=== PATIENT | female | born 1995 | race Caucasian/White ===

== ENCOUNTER 2019-01-29 19:39 | Emergency (ER) | payer OTHER ==
[2019-01-29 19:46] VITALS: BP 104/68; PULSE 87; RESP 18; TEMP 98.1
[2019-01-29] MEDS ORDERED: ACETAMINOPHEN TAB 500 MG TAB PO STA (19:57)
--- NOTE | 2019-01-29 20:03 | ED ---
Fall HPI - General Source: patient Mode of arrival: wheelchair <Shabana Urbano - Last Filed: 01/29/19 20:48> <Elsa Laws - Last Filed: 02/01/19 00:03> - General Chief Complaint: Fall Stated Complaint: Fell downstairs/37 wks Time Seen by Provider: 01/29/19 19:46 - History of Present Illness Initial Comments: 23-year-old female patient presents to the emergency department today for evaluation of right ankle injury. Patient states that an hour ago she was coming down the stairs when she fell down the last 2 steps. Patient states that she did fall down. States she felt a snapping in the right ankle has been having pain since. States she was able to handle it but was quite difficult due to the pain. Patient is 37 weeks . , currently seeing Dr. Nicolas for care. She is unsure she struck her abdomen on the ground. States she is having some cramping across her abdomen. Denies any vaginal bleeding or discharge. Denies any back pain. She denies hitting her head or losing consciousness. Patient denies any headache, neck pain, chest pain, shortness of breath, dizziness, weakness, nausea, vomiting, or difficulties with bowel movements or urination. (Shabana Urbano) - Related Data Home Medications Medication Instructions Recorded Confirmed No Known Home Medications 01/18/17 01/29/19 Allergies Allergy/AdvReac Type Severity Reaction Status Date / Time No Known Allergies Allergy Verified 01/29/19 21:45 Review of Systems ROS Other: All systems not noted in ROS Statement are negative. <Shabana Urbano - Last Filed: 01/29/19 20:48> ROS Other: All systems not noted in ROS Statement are negative. <Elsa Laws - Last Filed: 02/01/19 00:03> ROS Statement: Those systems with pertinent positive or pertinent negative responses have been documented in the HPI. Past Medical History Past Medical History: Asthma History of Any Multi-Drug Resistant Organisms: None Reported Past Surgical History: No Surgical Hx Reported Past Psychological History: Anxiety, Bipolar, Depression Smoking Status: Former smoker Past Alcohol Use History: Occasional Past Drug Use History: None Reported <Shabana Urbano - Last Filed: 01/29/19 20:48> General Exam Limitations: no limitations General appearance: alert, in no apparent distress, other (Physical well- developed, well-nourished adult female patient in no acute distress. Vital signs upon presentation are temperature 98.1F, pulse 87, respirations 18, blood pressure 104/68, pulse ox 97% on room air. ) Neck exam: Present: normal inspection, full ROM, other (Nontender, no step-off, no deformity to firm midline palpation of the posterior cervical spine. Full range of motion without pain or limitation.). Absent: tenderness, meningismus, lymphadenopathy Respiratory exam: Present: normal lung sounds bilaterally. Absent: respiratory distress, wheezes, rales, rhonchi, stridor Cardiovascular Exam: Present: regular rate, normal rhythm, normal heart sounds. Absent: systolic murmur, diastolic murmur, rubs, gallop, clicks GI/Abdominal exam: Present: soft, normal bowel sounds, other (Gravid abdomen). Absent: distended, tenderness, guarding, rebound, rigid Extremities exam: Present: full ROM, tenderness (Right lateral malleolus tenderness), normal capillary refill, other (Swelling surrounding the right late ral malleolus. Skin is otherwise pink, warm, dry. Cap refills less than 3 seconds. Pedal and posttibial pulses are 2+ and equal bilaterally.). Absent: normal inspection, pedal edema, joint swelling, calf tenderness Neurological exam: Present: alert, oriented X3, CN II-XII intact Psychiatric exam: Present: normal affect, normal mood Skin exam: Present: warm, dry, intact, normal color. Absent: rash <Shabana Urbano - Last Filed: 01/29/19 20:48> Course Vital Signs 01/29/19 19:41 Temperature 98.1 F Pulse Rate 87 Respiratory 18 Rate Blood Pressure 104/68 O2 Sat by Pulse 97 Oximetry Medical Decision Making - Radiology Data Radiology results: report reviewed, image reviewed <Shabana Urbano - Last Filed: 01/29/19 20:48> <Elsa Laws - Last Filed: 02/01/19 00:03> - Medical Decision Making 23-year-old female patient presented to the emergency department today for evaluation of right ankle pain after experiencing a fall. Patient is 37 weeks and does report abdominal cramping. Physical examination revealed the right lateral malleolus swelling. Neurovascular status intact. Abdomen was gravid and nontender. Dr. Laws my attending was in and performed bedside ultrasound which showed normal movement and heart activity. X-ray of the right ankle was negative for any fracture. Patient symptoms are consistent with ankle sprain. We did place an air splint and discussed rest, ice, elevation. She is instructed follow-up with her primary care physician have repeat x-rays performed in 7-10 days if pain symptoms persist. She will be discharged and sent to the labor and delivery unit for monitoring. Return parameters were discussed in detail. She verbalizes understanding and agrees with this plan. (Shabana Urbano) I was available for consultation in the emergency department. The history and physical exam were done by the midlevel provider. I was consulted for this patients care. I reviewed the case with the midlevel provider and based on their presentation of the patient, I agree with the assessment, medical decision making and plan of care as documented. I evaluated the patient myself and performed the bedside ultrasound. Chart was dictated using [employer] dictation software. Attempts were made to correct any dictation errors however some typographical errors may persist. (Elsa Laws) - Radiology Data Three-view x-ray of the right ankle are obtained. Report was reviewed in its entirety. Impression by Dr. Gutierrez shows soft tissue swelling. No fracture seen. (Shabana Urbano) Disposition Is patient prescribed a controlled substance at d/c from ED?: No Time of Disposition: 20:36 <Shabana Urbano - Last Filed: 01/29/19 20:48> <Elsa Laws - Last Filed: 02/01/19 00:03> Clinical Impression: Right ankle sprain, Abdominal pain during intrauterine Disposition: HOME SELF-CARE Condition: Good Instructions (If sedation given, give patient instructions): Ankle Sprain (ED), Abdominal Pain in (ED) Additional Instructions: Rest, ice, elevate the right ankle. Apply ice 20 minutes at a time at least 4 times daily. Take Tylenol for pain control. Follow-up through primary care physician in one to 2 days for recheck. Have repeat x-rays performed in 7-10 days if pain symptoms persist. Once discharged from the emergency department, proceed directly to the labor and delivery unit for monitoring. They are expecting you. Referrals: Ml Nicolas MD [REFERRING] - 1-2 days
--- NOTE | 2019-01-29 20:21 | XR ---
EXAMINATION TYPE: XR ankle complete RT DATE OF EXAM: 01/29/2019 COMPARISON: NONE HISTORY: Pain. Fall. TECHNIQUE: 3 views FINDINGS: There is soft tissue swelling over the lateral malleolus. I see no fracture nor dislocation . Joint spaces are normal. IMPRESSION: Soft tissue swelling. No fracture seen.
== END 2019-01-29 20:52 | disposition home or self-care (01) ==
LOC: EC 19:39
DX: O9A.213 Injury, poisoning and certain other consequences of external causes complicating pregnancy, third trimester (principal); S93.401A Sprain of unspecified ligament of right ankle, initial encounter; O26.893 Other specified pregnancy related conditions, third trimester; R10.9 Unspecified abdominal pain; Z3A.37 37 weeks gestation of pregnancy; Z87.891 Personal history of nicotine dependence; W10.9XXA Fall (on) (from) unspecified stairs and steps, initial encounter; Y93.01 Activity, walking, marching and hiking
CPT/HCPCS: 99283

== ENCOUNTER 2019-01-29 21:05 | Outpatient (CLI) | payer OTHER ==
[2019-01-29 21:54] VITALS: BP 118/72; PULSE 86; RESP 16; TEMP 97.3
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
== END 2019-01-29 21:37 | disposition home or self-care (01) ==
LOC: FBPOP 21:05
PROVIDERS: ATTEND Obstetrics & Gynecology
DX: O99.89 Other specified diseases and conditions complicating pregnancy, childbirth and the puerperium (principal); G89.11 Acute pain due to trauma; Z3A.36 36 weeks gestation of pregnancy
CPT/HCPCS: 59025; G0463; 99213

== ENCOUNTER 2019-04-29 17:00 | Emergency (ER) | payer OTHER ==
[2019-04-29 17:18] VITALS: BP 134/86; PULSE 85; TEMP 98.2
[2019-04-29] MEDS ORDERED: CEPHALEXIN 500MG STARTER PACK 4 CAP BTL PO STA (17:26)
[2019-04-29 17:50] VITALS: RESP 20
--- NOTE | 2019-04-29 18:22 | XR ---
EXAMINATION TYPE: XR chest 2V DATE OF EXAM: 04/29/2019 COMPARISON: 01/12/2016 HISTORY: Cough TECHNIQUE: FINDINGS: Heart and mediastinum are normal. Lungs are clear. Diaphragm is normal. Bony thorax appears normal. IMPRESSION: Normal chest. No change.
--- NOTE | 2019-04-29 18:27 | ED ---
URI HPI - General Chief Complaint: Upper Respiratory Infection Stated Complaint: Sore on leg Source: patient Mode of arrival: ambulatory Limitations: no limitations - History of Present Illness Initial Comments: 24yo female presenting for multiple complaints. Patient states she has cough, congestion, sore throat for past 2 days. Denies difficulty breathing, drooling, shortness of breath. She states she also noted a sore on the left inner thigh. Patient states that there is some redness, no drainage of the area she states that she initially thought it was an ingrown hair. Patient denies any chest pain, sob, difficulty breathing. Denies any other complaints. Denies fever, body aches. Patient appears well on arrival. 2 month post , breast feeding. - Related Data Previous Rx's Medication Instructions Recorded Cephalexin [Keflex] 500 mg PO Q6HR 7 Days #28 cap 04/29/19 Allergies Allergy/AdvReac Type Severity Reaction Status Date / Time No Known Allergies Allergy Verified 04/29/19 17:18 Review of Systems ROS Statement: Those systems with pertinent positive or pertinent negative responses have been documented in the HPI. ROS Other: All systems not noted in ROS Statement are negative. Past Medical History Past Medical History: Asthma History of Any Multi-Drug Resistant Organisms: None Reported Past Surgical History: No Surgical Hx Reported Past Psychological History: Anxiety, Bipolar, Depression Smoking Status: Never smoker Past Alcohol Use History: Occasional Past Drug Use History: Marijuana General Exam - General Exam Comments Initial Comments: General: The patient is awake and alert, in no distress, and does not appear acutely ill. Eye: +3 mm pupils are equal, round and reactive to light, extra-ocular movements are intact. No nystagmus. There is normal conjunctiva bilaterally. No signs of icterus. No photophobia Ears, nose, mouth and throat: There are moist mucous membranes and no oral lesions. Oropharynx was not erythematous there is no tonsillar enlargement exudates or lesions. Uvula midline. Tympanic membranes are not erythematous or is no effusions bulging or retraction. No tenderness to palpation of the mastoid. No anterior cervical lymphadenopathy. Rhinorrhea, clear and bilateral nares. No tripoding, no drooling. Neck: The neck is supple, there is no tenderness or JVD. No nuchal rigidity Cardiovascular: There is a regular rate and rhythm. No murmur, rub or gallop is appreciated. Respiratory: Lungs are clear to auscultation, respirations are non-labored, breath sounds are equal. No wheezes, stridor, rales, or rhonchi. No retractions or abdominal breathing. Gastrointestinal: Soft, non-distended, non-tender abdomen without masses or organomegaly noted. There is no rebound or guarding present. Bowel sounds are unremarkable. Musculoskeletal: Normal ROM, no tenderness. Strength 5/5. Sensation intact. Radial pulses equal bilaterally 2+. Neurological: A&O x 3. CN II-XII intact grossly, There are no obvious motor or sensory deficits. Coordination appears grossly intact. Speech appears normal, no muffling. Skin: Skin is warm and dry and no rashes. small 1cm raised red lesion with cm of faint erythema warm to touch surrounding it. no fluctuance. No extremity edema Psychiatric: Cooperative Limitations: no limitations Course Vital Signs 04/29/19 04/29/19 17:16 17:47 Temperature 98.2 F Pulse Rate 85 Respiratory 18 20 Rate Blood Pressure 134/86 O2 Sat by Pulse 99 Oximetry Medical Decision Making - Medical Decision Making 24yo female presenting cough, congestions. CXR clear .influ (-). Patient lungs clear, appears well nontoxic. most likely viral syndrome. Patient leg revealed a carbuncle with surrounding cellulitis no abscess. placed on antibiotics (keflex, safe in breast feeding). return parameters discussed patient was discharged appearing well after discussing case with Dr. Loco. - Lab Data Lab Results 04/29/19 Range/Units 17:46 Influenza Type A RNA Not Detected (Not Detectd) Influenza Type B (PCR) Not Detected (Not Detectd) Disposition Clinical Impression: URI (upper respiratory infection), Cellulitis of left thigh Disposition: HOME SELF-CARE Condition: Good Instructions (If sedation given, give patient instructions): Cellulitis (DC), Upper Respiratory Infection (ED) Additional Instructions: Please use medication as discussed. Please follow-up with family doctor in the next 2 days, watch redness as discussed. Please return to emergency room if the symptoms increase or worsen or for any other concerns. Prescriptions: Cephalexin [Keflex] 500 mg PO Q6HR 7 Days #28 cap Is patient prescribed a controlled substance at d/c from ED?: No Referrals: None,Stated [Primary Care Provider] - 1-2 days Time of Disposition: 18:26
== END 2019-04-29 18:39 | disposition home or self-care (01) ==
LOC: EC 17:00
DX: J06.9 Acute upper respiratory infection, unspecified (principal); L03.116 Cellulitis of left lower limb
CPT/HCPCS: 71046; 87502; 99283

== ENCOUNTER → 2021-08-22 | Outpatient (CLI) | payer OTHER ==
--- NOTE | 2021-08-22 13:14 | XR ---
Lumbosacral spine HISTORY: M 54.6, M 54.50 5 views of the lumbosacral spine Bone mineralization, vertebral body heights and alignment are maintained. Sclerosis in the posterior elements of the lower lumbosacral spine could be due to facet arthropathy. There is loss of disc at L 5-S1. No fracture or subluxation. There is no evident spondylolysis. IMPRESSION: There may be mild degenerative disc disease, facet arthropathy.
--- NOTE | 2021-08-22 13:45 | XR ---
Thoracic spine HISTORY: Pain 3 views of the thoracic spine There is a slight spinal curvature. Thoracic vertebral bodies show preserved height, alignment, and b one mineralization. There is mild multilevel spondylosis, some loss of disc height present at interve rtebral levels the midthoracic spine. No paraspinal mass. IMPRESSION: Mild degenerative disc changes are present.
== END | disposition home or self-care (01) ==
LOC: RADXRMAIN 11:40
PROVIDERS: ATTEND Family Medicine
DX: M47.814 Spondylosis without myelopathy or radiculopathy, thoracic region (principal)
CPT/HCPCS: 72070; 72110

== ENCOUNTER 2021-11-19 17:30 | Emergency (ER) | payer OTHER ==
[2021-11-19 18:03] VITALS: RESP 16
[2021-11-19] MEDS ORDERED: SODIUM CHLORIDE 0.9% 1,000 ML IV STA ×2 (19:14)
--- NOTE | 2021-11-19 19:22 | ED ---
General Adult HPI - General Chief complaint: Chest Pain Stated complaint: 8 wks preg/near syncope/chest pain/KATHRYN Time Seen by Provider: 11/19/21 19:05 Source: patient Mode of arrival: ambulatory Limitations: no limitations - History of Present Illness Initial comments: This 26-year-old female presents with a complaint of some pain in her chest. She states that it started yesterday. It is sharp at times. There is a degree of pleuritic chest pain as well. She complains of occasional shortness of breath with deep inspiration. She also states that she has had some pain in her mid back that seems radiate up into her left upper back. She denies any urinary symptoms. She complains of some lower abdominal cramping and is currently 8 weeks . She denies any complications with other than nausea and vomiting. She denies any history of blood clots to her legs or lungs. There is no leg pain or swelling. She has had a cough with some yellowish production. No other complaints or modifying factors. - Related Data Previous Rx's Medication Instructions Recorded Cephalexin [Keflex] 500 mg PO Q6HR 7 Days #28 cap 04/29/19 Amoxic-Pot Clav 875-125Mg 1 each PO Q12HR #20 tablet 11/19/21 [Augmentin Xr 875-125] Metoclopramide [Reglan] 10 mg PO Q6H PRN #20 tab 11/19/21 Allergies Allergy/AdvReac Type Severity Reaction Status Date / Time No Known Allergies Allergy Verified 11/19/21 18:03 Review of Systems ROS Statement: Those systems with pertinent positive or pertinent negative responses have been documented in the HPI. ROS Other: All systems not noted in ROS Statement are negative. Past Medical History Past Medical History: Asthma History of Any Multi-Drug Resistant Organisms: None Reported Past Surgical History: No Surgical Hx Reported Past Psychological History: Anxiety, Bipolar, Depression Smoking Status: Never smoker Past Alcohol Use History: Occasional Past Drug Use History: Marijuana General Exam - General Exam Comments Initial Comments: GENERAL: The patient is well nourished and well hydrated. VITAL SIGNS: Heart rate, blood pressure, respiratory rate reviewed as recorded in nurse's notes. EYES: Pupils are round and reactive. Extraocular movements are intact. No conjunctival / lid redness or swelling. ENT: No external evidence of injury, swelling, or ecchymosis. Airway is patent. Throat is clear. NECK: Nontender. No swelling or evidence of injury. No subcutaneous emphysema. Trachea is midline. No thyroid mass. HEART: Regular rate and rhythm. Good peripheral pulses. LUNGS/CHEST: Breath sounds clear and equal bilaterally. No rales, rhonchi, or wheezes. No ecchymosis, subcutaneous emphysema, or tenderness. ABDOMEN: Minimal tenderness bilateral flanks, minimal tenderness lower abdomen midline and bilaterally. No palpable masses or organomegaly. No peritoneal signs. No abdominal wall swelling or ecchymosis. EXTREMITIES: No extremity tenderness. Normal muscle tone and function. No thoracolumbar tenderness. NEUROLOGIC: Sensation is grossly intact. Cranial nerve exam reveals face is symmetrical, tongue is midline, speech is clear. SKIN: No abrasions or ecchymosis is noted. No induration or masses noted. PSYCHIATRIC: Alert and oriented. Appropriate behavior and judgment. Limitations: no limitations Course Vital Signs 11/19/21 11/19/21 18:00 19:34 Temperature 98.4 F 99.4 F Pulse Rate 87 76 Respiratory 16 16 Rate Blood Pressure 120/58 O2 Sat by Pulse 99 99 Oximetry Medical Decision Making - Medical Decision Making The patient was seen and examined. All diagnostics were reviewed. An IV is established and she is hydrated. Pelvic ultrasound does not show any acute abnormalities. There is heart tones with intrauterine . The urinalysis does not show any evidence of infection. The patient does have a negative cold. An influenza test. Laboratories unremarkable. The d-dimer is negative. It is not felt as though she is evidence of pulmonary embolism. She likely may have a bronchitis. She is bringing up some productive yellowish sputum. She does have a history of asthma. She has an inhaler at home that she can take. She is instructed to take her albuterol 2 puffs every 4 hours. She 'll be placed on antibiotics as well. She requests something for nausea related to her and will be prescribed Reglan. Close follow-up with her doctor recommended. Return parameters are discussed. She is instructed that she also may take Tylenol if needed for pain safely during . - Lab Data Result diagrams: 11/19/21 19:36 11/19/21 19:36 Lab Results 11/19/21 11/19/21 11/19/21 Range/Units 19:36 19:36 19:36 WBC 8.9 (3.8-10.6) k/uL RBC 4.49 (3.80-5.40) m/uL Hgb 13.5 (11.4-16.0) gm/dL Hct 39.8 (34.0-46.0) % MCV 88.8 (80.0-100.0) fL MCH 30.0 (25.0-35.0) pg MCHC 33.8 (31.0-37.0) g/dL RDW 13.0 (11.5-15.5) % Plt Count 272 (150-450) k/uL MPV 7.9 Neutrophils % 84 % Lymphocytes % 8 % Monocytes % 7 % Eosinophils % 0 % Basophils % 1 % Neutrophils # 7.4 (1.3-7.7) k/uL Lymphocytes # 0.7 L (1.0-4.8) k/uL Monocytes # 0.6 (0-1.0) k/uL Eosinophils # 0.0 (0-0.7) k/uL Basophils # 0.1 (0-0.2) k/uL PT 10.1 (9.0-12.0) sec INR 0.9 (<1.2) APTT 25.5 (22.0-30.0) sec D-Dimer 0.56 (<0.60) mg/L FEU Sodium 134 L (137-145) mmol/L Potassium 4.0 (3.5-5.1) mmol/L Chloride 99 (98-107) mmol/L Carbon Dioxide 27 (22-30) mmol/L Anion Gap 8 mmol/L BUN 9 (7-17) mg/dL Creatinine 0.53 (0.52-1.04) mg/dL Est GFR (CKD-EPI)AfAm >90 (>60 ml/min/1.73 sqM) Est GFR (CKD-EPI)NonAf >90 (>60 ml/min/1.73 sqM) Glucose 93 (74-99) mg/dL Calcium 9.9 (8.4-10.2) mg/dL Total Bilirubin 0.4 (0.2-1.3) mg/dL AST 21 (14-36) U/L ALT 17 (4-34) U/L Alkaline Phosphatase 52 (38-126) U/L Troponin I (0.000-0.034) ng/mL Total Protein 7.3 (6.3-8.2) g/dL Albumin 4.4 (3.5-5.0) g/dL HCG, Quant 903589.0 mIU/mL Urine Color Urine Appearance (Clear) Urine pH (5.0-8.0) Ur Specific Ward (1.001-1.035) Urine Protein (Negative) Urine Glucose (UA) (Negative) Urine Ketones (Negative) Urine Blood (Negative) Urine Nitrite (Negative) Urine Bilirubin (Negative) Urine Urobilinogen (<2.0) mg/dL Ur Leukocyte Esterase (Negative) Urine WBC (0-5) /hpf Ur Squamous Epith Cells (0-4) /hpf Urine Bacteria (None) /hpf Urine Mucus (None) /hpf Coronavirus (PCR) (Not Detectd) Influenza Type A RNA (Not Detectd) Influenza Type B (PCR) (Not Detectd) 11/19/21 11/19/21 11/19/21 Range/Units 19:36 19:56 19:56 WBC (3.8-10.6) k/uL RBC (3.80-5.40) m/uL Hgb (11.4-16.0) gm/dL Hct (34.0-46.0) % MCV (80.0-100.0) fL MCH (25.0-35.0) pg MCHC (31.0-37.0) g/dL RDW (11.5-15.5) % Plt Count (150-450) k/uL MPV Neutrophils % % Lymphocytes % % Monocytes % % Eosinophils % % Basophils % % Neutrophils # (1.3-7.7) k/uL Lymphocytes # (1.0-4.8) k/uL Monocytes # (0-1.0) k/uL Eosinophils # (0-0.7) k/uL Basophils # (0-0.2) k/uL PT (9.0-12.0) sec INR (<1.2) APTT (22.0-30.0) sec D-Dimer (<0.60) mg/L FEU Sodium (137-145) mmol/L Potassium (3.5-5.1) mmol/L Chloride (98-107) mmol/L Carbon Dioxide (22-30) mmol/L Anion Gap mmol/L BUN (7-17) mg/dL Creatinine (0.52-1.04) mg/dL Est GFR (CKD-EPI)AfAm (>60 ml/min/1.73 sqM) Est GFR (CKD-EPI)NonAf (>60 ml/min/1.73 sqM) Glucose (74-99) mg/dL Calcium (8.4-10.2) mg/dL Total Bilirubin (0.2-1.3) mg/dL AST (14-36) U/L ALT (4-34) U/L Alkaline Phosphatase (38-126) U/L Troponin I <0.012 (0.000-0.034) ng/mL Total Protein (6.3-8.2) g/dL Albumin (3.5-5.0) g/dL HCG, Quant mIU/mL Urine Color Urine Appearance (Clear) Urine pH (5.0-8.0) Ur Specific Ward (1.001-1.035) Urine Protein (Negative) Urine Glucose (UA) (Negative) Urine Ketones (Negative) Urine Blood (Negative) Urine Nitrite (Negative) Urine Bilirubin (Negative) Urine Urobilinogen (<2.0) mg/dL Ur Leukocyte Esterase (Negative) Urine WBC (0-5) /hpf Ur Squamous Epith Cells (0-4) /hpf Urine Bacteria (None) /hpf Urine Mucus (None) /hpf Coronavirus (PCR) Not Detected (Not Detectd) Influenza Type A RNA Not Detected (Not Detectd) Influenza Type B (PCR) Not Detected (Not Detectd) 11/19/21 Range/Units 20:37 WBC (3.8-10.6) k/uL RBC (3.80-5.40) m/uL Hgb (11.4-16.0) gm/dL Hct (34.0-46.0) % MCV (80.0-100.0) fL MCH (25.0-35.0) pg MCHC (31.0-37.0) g/dL RDW (11.5-15.5) % Plt Count (150-450) k/uL MPV Neutrophils % % Lymphocytes % % Monocytes % % Eosinophils % % Basophils % % Neutrophils # (1.3-7.7) k/uL Lymphocytes # (1.0-4.8) k/uL Monocytes # (0-1.0) k/uL Eosinophils # (0-0.7) k/uL Basophils # (0-0.2) k/uL PT (9.0-12.0) sec INR (<1.2) APTT (22.0-30.0) sec D-Dimer (<0.60) mg/L FEU Sodium (137-145) mmol/L Potassium (3.5-5.1) mmol/L Chloride (98-107) mmol/L Carbon Dioxide (22-30) mmol/L Anion Gap mmol/L BUN (7-17) mg/dL Creatinine (0.52-1.04) mg/dL Est GFR (CKD-EPI)AfAm (>60 ml/min/1.73 sqM) Est GFR (CKD-EPI)NonAf (>60 ml/min/1.73 sqM) Glucose (74-99) mg/dL Calcium (8.4-10.2) mg/dL Total Bilirubin (0.2-1.3) mg/dL AST (14-36) U/L ALT (4-34) U/L Alkaline Phosphatase (38-126) U/L Troponin I (0.000-0.034) ng/mL Total Protein (6.3-8.2) g/dL Albumin (3.5-5.0) g/dL HCG, Quant mIU/mL Urine Color Colorless Urine Appearance Clear (Clear) Urine pH 6.5 (5.0-8.0) Ur Specific Ward 1.006 (1.001-1.035) Urine Protein Negative (Negative) Urine Glucose (UA) Negative (Negative) Urine Ketones Negative (Negative) Urine Blood Negative (Negative) Urine Nitrite Negative (Negative) Urine Bilirubin Negative (Negative) Urine Urobilinogen <2.0 (<2.0) mg/dL Ur Leukocyte Esterase Trace H (Negative) Urine WBC <1 (0-5) /hpf Ur Squamous Epith Cells 5 H (0-4) /hpf Urine Bacteria Rare H (None) /hpf Urine Mucus Rare H (None) /hpf Coronavirus (PCR) (Not Detectd) Influenza Type A RNA (Not Detectd) Influenza Type B (PCR) (Not Detectd) Disposition Clinical Impression: Chest pain, Flank pain, Abdominal pain, , Cough, Bronchitis, Asthma, N ausea/vomiting in Disposition: HOME SELF-CARE Condition: Good Instructions (If sedation given, give patient instructions): Chest Pain (ED), Acute Bronchitis (ED), Abdominal Pain in (ED), Nausea and Vomiting in (ED) Prescriptions: Amoxic-Pot Clav 875-125Mg [Augmentin Xr 875-125] 1 each PO Q12HR #20 tablet Metoclopramide [Reglan] 10 mg PO Q6H PRN #20 tab PRN Reason: Nausea Is patient prescribed a controlled substance at d/c from ED?: No Referrals: Cassi Patino MD [Primary Care Provider] - 1-2 days Time of Disposition: 21:25
[2021-11-19 19:35] VITALS: TEMP 99.4
[2021-11-19 19:42] LABS: Basophils # (A) 0.1 k/uL (0-0.2); Basophils % (A) 1 %; Eosinophils % (A) 0 %; HCT 39.8 % (34.0-46.0); HGB 13.5 gm/dL (11.4-16.0); Lymphocytes # (A) 0.7 k/uL (1.0-4.8); Lymphocytes % (A) 8 %; MCHC 33.8 g/dL (31.0-37.0); MCV 88.8 fL (80.0-100.0); Mean Platelet Volume 7.9; Monocytes # (A) 0.6 k/uL (0-1.0); Monocytes % (A) 7 %; Neutrophils # (A) 7.4 k/uL (1.3-7.7); Neutrophils % (A) 84 %; Platelet Count 272 k/uL (150-450); RBC 4.49 m/uL (3.80-5.40); WBC 8.9 k/uL (3.8-10.6)
[2021-11-19 19:54] LABS: ALT 17 U/L (4-34); AST 21 U/L (14-36); African American GFR (CKD) >90 (>60 ml/min/1.73 sqM); Albumin 4.4 g/dL (3.5-5.0); Alkaline Phosphatase 52 U/L (38-126); Anion Gap 8 mmol/L; Blood Urea Nitrogen 9 mg/dL (7-17); Calcium 9.9 mg/dL (8.4-10.2); Carbon Dioxide 27 mmol/L (22-30); Chloride 99 mmol/L (98-107); Glucose 93 mg/dL (74-99); Non-African American GFR(CKD) >90 (>60 ml/min/1.73 sqM); Sodium 134 mmol/L (137-145); Total Bilirubin 0.4 mg/dL (0.2-1.3); Total Protein 7.3 g/dL (6.3-8.2)
[2021-11-19 19:58] LABS: INR 0.9 (<1.2); Partial Thromboplastin Time 25.5 sec (22.0-30.0); Prothrombin Time 10.1 sec (9.0-12.0)
--- NOTE | 2021-11-19 20:35 | US ---
EXAMINATION TYPE: Transabdominal DATE OF EXAM: 11/19/2021 8:18 PM COMPARISON: NONE CLINICAL HISTORY: pain. EXAM PERFORMED: Transabdominal (TA) EXAM MEASUREMENTS: GESTATIONAL AGE / DATING Physician Established: Not yet established Dates by LMP: (7 weeks/5 days) EDC: 07/03/2022 Dates by First Scan: No previous this is first scan Dates by Current Scan for: (7 weeks/5 days) EDC: 07/03/2022 MATERNAL ANATOMY Uterus: 10.5 x 4.9 x 7.1cm Right Ovary: 2.5 x 1.8 x 1.9cm Left Ovary: 3.6 x 2.0 x 3.2cm Post CDS / Adnexa: wnl Presence of free fluid: no Presence of corpus luteal cyst: left ovary: 2.1cm Presence of subchorionic bleed: no GESTATION / SURVEY CRL: 1.3cm (7 weeks/5 days) Yolk Sac (normal less than 6mm): 3.9mm Heart Rate: 158 bpm Rhythm: Normal IUP: Viable IUP Date of LMP: 09/26/2021 Beta HcG (if available): Not available at time of exam IMPRESSION: Single live intrauterine gestation ultrasound age of 7 weeks 5 days
[2021-11-19 21:01] LABS: Appearance,Urine Clear (Clear); Bacteria,Urine Rare /hpf; Bilirubin,Urine Negative (Negative); Blood,Urine Negative (Negative); Color,Urine Colorless; Glucose,Urine (UA) Negative (Negative); Ketones,Urine Negative (Negative); Leukocyte Esterase,Urine Trace (Negative); Mucus,Urine Rare /hpf; Nitrite,Urine Negative (Negative); PH, Urine 6.5 (5.0-8.0); Protein,Urine Negative (Negative); Specific Gravity,Urine 1.006 (1.001-1.035); Squamous Epithelial Cell,Urine 5 /hpf (0-4); Urobilinogen,Urine <2.0 mg/dL (<2.0); WBC,Urine <1 /hpf (0-5)
[2021-11-19 21:54] VITALS: BP 122/73; PULSE 78
== END 2021-11-19 21:54 | disposition home or self-care (01) ==
LOC: EC 17:30
DX: O26.891 Other specified pregnancy related conditions, first trimester (principal); O99.511 Diseases of the respiratory system complicating pregnancy, first trimester; J45.909 Unspecified asthma, uncomplicated; F41.9 Anxiety disorder, unspecified; F31.9 Bipolar disorder, unspecified; F12.90 Cannabis use, unspecified, uncomplicated; Z79.899 Other long term (current) drug therapy; Z20.822 Contact with and (suspected) exposure to COVID-19; Z3A.08 8 weeks gestation of pregnancy
CPT/HCPCS: 36415; 76801; 80053; 81001; 84484; 84702; 85025; 85379; 85610; 85730; 87502; 87635; 93005; 96360; 96361; 99285

== ENCOUNTER → 2021-12-01 | Outpatient (CLI) | payer OTHER ==
--- NOTE | 2021-12-01 12:41 | US ---
EXAMINATION TYPE: Transabdominal DATE OF EXAM: 12/01/2021 9:08 AM COMPARISON: 11/19/2021 CLINICAL HISTORY: Z34.90SUPERVISION OF NORMAL . Dates. EXAM PERFORMED: Transabdominal (TA) EXAM MEASUREMENTS: GESTATIONAL AGE / DATING Physician Established: Not yet established Dates by LMP: (9 weeks/3 days) EDC: 07/03/2022 Dates by First Scan: (9 weeks/3 days) EDC: 07/03/2022 Dates by Current Scan for: ( 9 weeks/1 days) EDC: 07/05/2022 MATERNAL ANATOMY Uterus: 9.5 x 8.5 x 6.7 cm Right Ovary: 3.6 x 2.0 x 1.9 cm Left Ovary: 3.0 x 2.0 x 1.7 cm Post CDS / Adnexa: no free fluid Presence of free fluid: no Presence of corpus luteal cyst: left= 1.3 x 1.9 x 1.3 cm Presence of subchorionic bleed: no GESTATION / SURVEY CRL: 2.5 cm (9 weeks/1 days) MSD: seen, not measured Yolk Sac (normal less than 6mm): 3.9 mm Heart Rate: 165 bpm Rhythm: Normal IUP: Demise Date of LMP: 09/26/2021, Beta HcG (if available): Not available at this time IMPRESSION: 1. Single intrauterine gestation estimated at 9 weeks 1 day gestation based on crown-rump length. Car diac activity measures 165 bpm.
== END | disposition home or self-care (01) ==
LOC: RADUSWWP 08:49
PROVIDERS: ATTEND Obstetrics & Gynecology
DX: Z34.91 Encounter for supervision of normal pregnancy, unspecified, first trimester (principal); Z3A.09 9 weeks gestation of pregnancy
CPT/HCPCS: 76801

== ENCOUNTER → 2022-02-27 | Outpatient (CLI) | payer OTHER ==
--- NOTE | 2022-02-27 09:42 | US ---
EXAMINATION TYPE: US OB >= 14 wk fetus DATE OF EXAM: 02/27/2022 COMPARISON: None CLINICAL HISTORY: Z34.90 normal TECHNIQUE: Transabdominal (TA) GESTATIONAL AGE / DATING Physician Established: (22 weeks/0 days) EDC: 07/03/22 Dates by LMP: (22 weeks/0 days) EDC: 07/03/22 Dates by First Scan: (21 weeks/5 days) EDC: 07/05/22 Dates by Current Scan: (22 weeks/2 days) EDC: 07/01/22 SURVEY IUP: Single PLACENTA: Anterior PREVIA: No Previa MELANY: 12.2 cm Normal CERVICAL LENGTH (transabdominal: norm > 3.0cm): 3.1 cm BIOMETRY PRESENTATION: Vertex LIE: Transverse with head maternal LT BPD: 5.3 cm 22 weeks / 1 days HC: 19.9 cm 22 weeks / 1 days AC: 17.5 cm 22 weeks / 3 days FL: 3.8 cm 22 weeks / 2 days ESTIMATED WEIGHT IN GRAMS: 490 grams ESTIMATED WEIGHT IN LBS/OZ: 1 lbs. 1 oz. WEIGHT PERCENTAGE BASED ON ESTABLISHED DATES: 58% HC/AC: 1.14 Normal FL/AC: 22% Normal HEART RATE: 132 bpm RHYTHM: Normal IMPRESSION: Single live intrauterine gestation with ultrasound age of 22 weeks 2 days.
== END | disposition home or self-care (01) ==
LOC: RADUSWWP 08:18
PROVIDERS: ATTEND Obstetrics & Gynecology
DX: Z36.89 Encounter for other specified antenatal screening (principal); Z3A.22 22 weeks gestation of pregnancy
CPT/HCPCS: 76805

== ENCOUNTER → 2022-03-20 | Outpatient (CLI) | payer OTHER ==
--- NOTE | 2022-03-20 10:08 | US ---
EXAMINATION TYPE: US OB anatomy transabd DATE OF EXAM: 03/20/2022 COMPARISON: US HISTORY: Z34.90 SUPERVISION NORMAL anatomy TECHNIQUE: Transabdominal (TA) EXAM MEASUREMENTS: GESTATIONAL AGE / DATING Physician Established: (25 weeks/0 days) EDC: 07/03/2022 Dates by LMP: (25 weeks/0 days) EDC: 07/03/2022 Dates by First Scan: (24 weeks/5 days) EDC: 07/05/2022 Dates by Current Scan for: (24 weeks/4 days) EDC: 07/06/2022 SURVEY IUP: Single PLACENTA: Anterior PREVIA: No previa MELANY: 16.6 cm Normal CERVICAL LENGTH (transabdominal: norm > 3.0cm): 4.0 cm BIOMETRY PRESENTATION: Breech BPD: 6.0 cm 24 weeks / 4 days HC: 22.9 cm 25 weeks / 0 days AC: 20.9 cm 25 weeks / 3 days FL: 4.5 cm 24 weeks / 5 days ESTIMATED WEIGHT IN GRAMS: 766 grams ESTIMATED WEIGHT IN LBS/OZ: 1 lbs. 1 oz. WEIGHT PERCENTAGE BASED ON ESTABLISHED DATE: 42.7 % HC/AC: 1.10 Normal FL/AC: 21 Normal HEART RATE: 125 bpm RHYTHM: Normal ANATOMY SEEN (within normal limits): * Lateral Vent (< 1 cm) 0.6 cm * Cisterna Magna (< 1.1 cm) 0.5 cm * Cerebellum (varies with age) 2.4 cm Choroid Plexus (bilateral) Midline Falx Cavus Septi Pellucidi Four Chamber Heart Outflow tracts: LVOT/RVOT Stomach Situs Nose / Lips Diaphragm Kidneys (bilateral) Bladder Cord Insert Three Vessel Cord Arms (bilateral) Legs (bilateral) ANATOMY NOT SEEN: Fetus spine down Longitudinal Spine Transverse Spine IMPRESSION: Single, viable IUP/ Anatomy visualized appeared wnl/ Patient returning for spine images on 04/03/22* *
== END ==
LOC: RADUSWWP 08:21
PROVIDERS: ATTEND Obstetrics & Gynecology
DX: Z34.92 Encounter for supervision of normal pregnancy, unspecified, second trimester (principal); Z3A.25 25 weeks gestation of pregnancy
CPT/HCPCS: 76811

== ENCOUNTER → 2022-04-03 | Outpatient (CLI) | payer OTHER ==
--- NOTE | 2022-04-03 09:22 | US ---
EXAMINATION TYPE: US OB Call Back DATE OF EXAM: 04/03/2022 COMPARISON: 03/20/2022 CLINICAL HISTORY: OB CALL BACK. Additional spine images requested GESTATIONAL AGE / DATING Dates by Initial Survey Scan: (27 weeks/0 days) EDC: 07/03/2022 HEART RATE: 132 bpm RHYTHM: Normal ANATOMY SEEN (second anatomic survey look): Longitudinal Spine: wnl Transverse Spine: wnl Single live intrauterine gestation redemonstrated. 2 views of the spine now successfully visualized a nd felt within normal limits. IMPRESSION: As above.
== END | disposition home or self-care (01) ==
LOC: RADUSWWP 08:32
PROVIDERS: ATTEND Obstetrics & Gynecology
DX: Z36.89 Encounter for other specified antenatal screening (principal); Z3A.27 27 weeks gestation of pregnancy

== ENCOUNTER 2022-05-12 16:53 | Outpatient (CLI) | payer OTHER ==
[2022-05-12 19:09] VITALS: BP 120/63; PULSE 98; RESP 16; TEMP 99.6
--- NOTE | 2022-05-13 12:18 | P.MSEPDOC ---
Presenting Problems - Arrival Data Date of Arrival on Unit: 05/05/22 Time of Arrival on Unit: 16:53 Mode of Transport: Ambulatory - Complaint OB-Reason for Admission/Chief Complaint: Other Comment: pt DOM c/o flu and covid symptoms Medical History - Information : 3 Para: 2 Term: 2 : 0 Abortions: Spontaneous or Elective: 0 Number of Living Children: 2 - Gestational Age Gestational Age by BHUPINDER (wks/days): 32 Weeks and 4 Days - History Complications: No Care Review of Systems - Review of Systems Constitutional: No problems Breast: No problems ENT: Cough Cardiovascular: No problems Respiratory: No problems Gastrointestinal: No problems Genitourinary: No problems Musculoskeletal: No problems Neurological: No problems Skin: No problems Vital Signs - Temperature Temperature: 99.6 F Temperature Source: Oral - Pulse Right Brachial Pulse Rate: 98 Pulse Assessment Method: Automatic Cuff - Respirations Respiratory Rate: 16 Oxygen Delivery Method: Room Air O2 Sat by Pulse Oximetry: 99 - Blood Pressure Right Arm Blood Pressure: 120/63 Blood Pressure Mean: 82 Blood Pressure Source: Automatic Cuff Medical Screen Scoring - Assessment - Baby A Baseline FHR: 140 Heart Rate - NICHD Category: Category I (Normal) NST: Reactive Physician Notification - Physician Notified Physician Notified Date: 05/12/22 Physician Notified Time: 17:30 New Order Received: Yes - Notification Comment Comment: after reactive NST may discharge to home or she can f/u in the ER for further evualation or go see her doctor Maternal Triage Index - Non-Urgent/Priority 4 Non-Urgent Priority 4: Yes Criteria Met for Priority 4: DOM pt arrived c/o flu and covid symptoms Disposition - Disposition OB Disposition: Discharge to home Discharge Date: 05/12/22 Discharge Time: 19:00 I agree with the RN Medical Screening Exam: Yes Case reviewed; plan agreed upon as documented in EMR&OBIX.: Yes Diagnosis: RELATED CONDITIONS, UNSPECIFIED, THIRD TRIMESTER (Pt presented to triage with complaints of respiratory symptoms. She has no had care here and is seeing another provider at [facility]. Came her apparently becaue she did not want to drive there. Obstetrical evaluation was negative, without evidence of compromise. NST is cat 1. Patient was transfered to ER for evaluation of her non-obstetrical symptoms. )
== END 2022-05-12 19:00 | disposition home or self-care (01) ==
LOC: FBPOP 16:53
PROVIDERS: ATTEND Obstetrics & Gynecology
DX: O99.513 Diseases of the respiratory system complicating pregnancy, third trimester (principal); Z3A.32 32 weeks gestation of pregnancy
CPT/HCPCS: 59025; G0463; 99213

== ENCOUNTER → 2022-12-23 | Outpatient (CLI) | payer OTHER ==
--- NOTE | 2022-12-23 21:45 | US ---
EXAMINATION TYPE: Transabdominal DATE OF EXAM: 12/23/2022 5:08 PM COMPARISON: None for this . CLINICAL INDICATION: Female, 27 years old with history of Z34.90 SUPERVISION OF NORMAL ; LMP unknown. . EXAM PERFORMED: Transabdominal (TA) EXAM MEASUREMENTS: GESTATIONAL AGE / DATING Physician Established: Not yet established Dates by LMP: Unknown Dates by First Scan: This is first scan Dates by Current Scan for: (8 weeks/4 days) EDC: 07/31/2023 MATERNAL ANATOMY Uterus: 15.0 x 9.9 x 6.1 cm. Right Ovary: 3.2 x 1.9 x 2.0 cm. Left Ovary: 3.8 x 1.8 x 1.7 cm. Post CDS / Adnexa: Appear wnl Presence of free fluid: None seen Presence of corpus luteal cyst: Not seen Presence of subchorionic bleed: No GESTATION / SURVEY CRL: 2.02 cm. (8 weeks/4 days) Yolk Sac (normal less than 6mm): 2.9 mm Heart Rate: 167 bpm Rhythm: Normal IUP: Viable IUP Date of LMP: Unknown per patient. Beta HcG (if available): Not available IMPRESSION: Single live intrauterine gestation with ultrasound age 8 weeks 4 days.
== END | disposition home or self-care (01) ==
LOC: RADUSWWP 16:25
PROVIDERS: ATTEND Obstetrics & Gynecology
DX: Z34.91 Encounter for supervision of normal pregnancy, unspecified, first trimester (principal); Z3A.08 8 weeks gestation of pregnancy
CPT/HCPCS: 76801

== ENCOUNTER → 2023-03-19 | Outpatient (CLI) | payer OTHER ==
--- NOTE | 2023-03-19 13:39 | US ---
EXAMINATION TYPE: US OB >= 14 wk fetus DATE OF EXAM: 03/19/2023 COMPARISON: 12/23/2022 CLINICAL INDICATION: Female, 27 years old with history of Z34.90 ENCNTR FOR SUPRVSN OF NORMAL PREGNAN CY, UNS; Anatomy TECHNIQUE: Transabdominal (TA) GESTATIONAL AGE / DATING Physician Established: (21 weeks/0 days) EDC: 07/30/2023 Dates by Current Scan: (20 weeks/1 days) EDC: 08/05/2023 SURVEY IUP: Single PLACENTA: Anterior PREVIA: No Previa MELANY: 8.4 cm Normal midline pocket 4.5 cm CERVICAL LENGTH (transabdominal: norm > 3.0cm): 4.5 cm BIOMETRY PRESENTATION: Variable LIE: Transverse with head maternal R BPD: 4.7 cm 20 weeks / 1 days HC: 17.5 cm 20 weeks / 0 days AC: 15.4 cm 20 weeks / 4 days FL: 3.4 cm 20 weeks / 5 days ESTIMATED WEIGHT IN GRAMS: 369 grams ESTIMATED WEIGHT IN LBS/OZ: 0 lbs. 13 oz. WEIGHT PERCENTAGE BASED ON ESTABLISHED DATES: 21.3% HC/AC: 1.1 Normal FL/AC: 22.1 Normal HEART RATE: 143 bpm RHYTHM: Normal unable to obtain proper images of spine, other randle unremarkable anatomy. Maternal right adnexa = dilated avascular anechoic tubular structures. IMPRESSION: Single live intrauterine gestation with ultrasound age 20 weeks 1 day. Other information as described above.
== END | disposition home or self-care (01) ==
LOC: RADUSWWP 12:17
PROVIDERS: ATTEND Obstetrics & Gynecology
DX: Z34.92 Encounter for supervision of normal pregnancy, unspecified, second trimester (principal); Z3A.20 20 weeks gestation of pregnancy
CPT/HCPCS: 76805

== ENCOUNTER → 2023-06-08 | Outpatient (CLI) | payer OTHER | END | disposition home or self-care (01) | LOC: LABWHC1 13:53 | PROVIDERS: ATTEND Obstetrics & Gynecology | DX: Z67.41 Type O blood, Rh negative (principal) | CPT/HCPCS: 86850; 86900; 86901 ==

== ENCOUNTER 2023-06-09 13:45 | Outpatient (CLI) | payer OTHER ==
[2023-06-09] MEDS: Rhogam IMMUNE GLOBULIN 1,500 UNIT/1 ML IM ONE (14:36)
== END 2023-06-09 14:45 | disposition home or self-care (01) ==
LOC: FBPOP 13:45
PROVIDERS: ATTEND Obstetrics & Gynecology
DX: O26.899 Other specified pregnancy related conditions, unspecified trimester (principal); O99.320 Drug use complicating pregnancy, unspecified trimester; F12.90 Cannabis use, unspecified, uncomplicated; Z67.41 Type O blood, Rh negative; Z3A.00 Weeks of gestation of pregnancy not specified
CPT/HCPCS: 96372; J2790

== ENCOUNTER → 2023-07-02 | Outpatient (CLI) | payer OTHER ==
--- NOTE | 2023-07-02 14:30 | US ---
EXAMINATION TYPE: US OB anatomy transabd DATE OF EXAM: 07/02/2023 COMPARISON: NONE CLINICAL INDICATION: Female, 28 years old with history of Z34.90 ENCNTR FOR SUPRVSN OF NORMAL PREGNAN CY, UNS; growth TECHNIQUE: Transabdominal (TA) EXAM MEASUREMENTS: GESTATIONAL AGE / DATING Physician Established: (36 weeks/0 days) EDC: 07/30/23 Dates by LMP: LMP unknown Dates by First Scan: (35 weeks/5 days) EDC: 07/31/23 Dates by Current Scan for: (35 weeks/3 days) EDC: 08/03/23 SURVEY IUP: Single PLACENTA: Anterior PREVIA: No previa MELANY: 8.6 cm CERVICAL LENGTH (transabdominal: norm > 3.0cm): 3.0 cm BIOMETRY PRESENTATION: Vertex LIE: Longitudinal BPD: 8.7 cm 35 weeks / 0 days HC: 31.7 cm 35 weeks / 5 days AC: 31.4 cm 35 weeks / 3 days FL: 6.9 cm 35 weeks / 4 days ESTIMATED WEIGHT IN GRAMS: 2659 grams ESTIMATED WEIGHT IN LBS/OZ: 5 lbs. 14 oz. WEIGHT PERCENTAGE BASED ON ESTABLISHED DATE: 33 % HC/AC: 1.01 Normal FL/AC: 22% Normal HEART RATE: 138 bpm RHYTHM: Normal ANATOMY SEEN (within normal limits): Four Chamber Heart Stomach Situs Diaphragm Kidneys (bilateral) Bladder Three Vessel Cord ANATOMY NOT SEEN: due to age and position Longitudinal Spine Transverse Spine Arms (bilateral) Legs (bilateral) Cord Insert Outflow tracts: LVOT/RVOT * Lateral Vent (< 1 cm) * Cisterna Magna (< 1.1 cm) * Nuchal Fold (< 0.6 cm) * Cerebellum (varies with age) Choroid Plexus (bilateral) Midline Falx Cavus Septi Pellucidi IMPRESSION: Single viable intrauterine .
== END | disposition home or self-care (01) ==
LOC: RADUSWWP 12:54
PROVIDERS: ATTEND Obstetrics & Gynecology
DX: Z34.93 Encounter for supervision of normal pregnancy, unspecified, third trimester (principal); Z3A.36 36 weeks gestation of pregnancy
CPT/HCPCS: 76811

== ENCOUNTER → 2023-10-13 | Outpatient (CLI) | payer OTHER ==
--- NOTE | 2023-10-14 12:12 | MM ---
Reason for Exam: Clinical finding. Baseline mammogram. Patient History: Menarche at age 10. First Full-Term at age 21. Patient has history of breast feeding. Currently using Hormonal Contraceptives, starting at age 28. Currently . Maternal aunt had breast cancer under age 50. Maternal grandmother had breast cancer under age 50. Last menstrual period: 10/09/2023 Prior Study Comparison: Patient's first Mammogram. Tissue Density: The breasts are heterogeneously dense, which may obscure small masses. Findings: Analyzed By CAD. No mass or distortion seen. Ultrasound recommended at palpable abnormality left breast. Mildly prominent ducts noted. No suspicious microcalcifications. Overall Assessment: Incomplete: need additional imaging evaluation, BI-RAD 0 Management: Diagnostic Breast Ultrasound of the left breast. . Results were given to the patient verbally at the time of exam. Patient should continue monthly self-breast exams. A clinical breast exam by your physician is recommended on an annual basis. This exam should not preclude additional follow-up of suspicious palpable abnormalities. Note on Hayde scores and lifetime risk: 1. A Hayde score greater than 3% is considered moderate risk. If this is the case, consider specialist referral to assess eligibility for a risk reducing agent. 2. If overall lifetime risk for the development of breast cancer is 20% or higher, the patient may qualify for future screening with alternating mammogram and breast MRI. Electronically signed and approved by: Lowell Maraivlla M.D. Radiologis
--- NOTE | 2023-10-17 09:24 | CT ---
EXAMINATION TYPE: CT foot RT w con DATE OF EXAM: 10/13/2023 COMPARISON: None HISTORY: Pain and swelling, injury years ago CT DLP: 216.9 mGycm Automated exposure control for dose reduction was used. Contrast: None Technique: Axial images 2 mm thick sections. Reconstructed images at 3 mm thick sections and coronal and sagittal planes. 3-D reconstructed images were performed through the right foot. FINDINGS: No acute fractures are evident. There is some mild diffuse soft tissue swelling. Small joint effusion at the ankle may be present posteriorly Note is made hammertoes, a chronic change. On soft tissue windows there is a complex collection posterior to the medial malleolus talus junction . This measures approximately 2.3 cm with some more central hypodensity. MRI of the ankle is recommen ded for additional workup. Infection should be considered within the differential. IMPRESSION: 1. COMPLEX HETEROGENOUS SMALL COLLECTION POSTERIOR TO THE JOINT SPACE OF THE MEDIAL ANKLE MORTISE. FI NDINGS NONSPECIFIC. DIFFERENTIAL SHOULD INCLUDE BUT IS NOT LIMITED TO BURSITIS AND INFECTION. ADDITIO NAL WORKUP WITH MRI IS RECOMMENDED. 2. NO ACUTE FRACTURES ARE IDENTIFIED.
== END | disposition home or self-care (01) ==
LOC: RADCTMAIN 12:11
PROVIDERS: ATTEND Family Medicine
DX: M25.471 Effusion, right ankle (principal); N64.4 Mastodynia; N63.42 Unspecified lump in left breast, subareolar
CPT/HCPCS: 77066; 73701; G0279; Q9967; 77062

== ENCOUNTER → 2023-11-15 | Outpatient (CLI) | payer OTHER ==
--- NOTE | 2024-01-01 12:45 | MR ---
EXAMINATION TYPE: MR ankle RT wo/w con DATE OF EXAM: 11/15/2023 COMPARISON: CT right foot 10/13/2023 HISTORY: 28-year-old female Right ankle pain and swelling with limited movement, Fell down cement sta irs, M25.471 EFFUSION M71.171 OTHR INFECTIVE BURSITIS R Technique: Multiplanar, multisequence images of the right ankle were obtained before and after admini stration of 8.5 mL intravenous Gadavist gadolinium contrast. FINDINGS: Along the posterior and posterolateral aspect of the ankle just overlying the margin of the tibiotala r and posterior subtalar joints, there is a multilocular ganglion cyst measuring up to 2.9 cm wide by 2.4 cm craniocaudal by 2.0 cm AP. There are no associated osseous erosions, significant joint effusi on, osseous edema or convincing suspicious soft tissue component identified. Some associated mild sep jennifer enhancement is present. Possible subtle tracking of the collection along the superior margin of the CFL into the sinus Tarsi. The ATFL, PTFL, and CFL appear intact as do the adjacent peroneal tendons. The deltoid spring ligament complex as well as the medial flexor tendons appear intact. The syndesmosis and anterior extensor tendons appear intact. The tibiotalar and subtalar joints are intact. No acute or healing fracture is seen. Smooth delineation to the Achilles tendon. The origin of the plantar fascia is intact IMPRESSION: 1. Multilocular ganglion cyst along the posterior, posterolateral aspect of the ankle measuring 2.9 x 2.4 x 2.0 cm. Possibly arising from the sinus tarsi along a thin extension tracking above the CFL. C onsider podiatry/orthopedic evaluation. 2. No other specific abnormality seen.
== END | disposition home or self-care (01) ==
LOC: RADMRIMAIN 14:24
PROVIDERS: ATTEND Family Medicine
DX: M71.171 Other infective bursitis, right ankle and foot (principal); M25.471 Effusion, right ankle; M67.471 Ganglion, right ankle and foot
CPT/HCPCS: 73723; A9585